=== PATIENT | male | born 1990 | race Caucasian/White ===

== ENCOUNTER 2016-08-16 13:37 | Emergency (ER) | payer OTHER ==
[~2016-08-16] VITALS: Ht 167.6 cm; Wt 83.0 kg
[2016-08-16 14:38] VITALS: BP 118/82
== END 2016-08-16 14:49 | disposition home or self-care (01) ==
LOC: EMS 13:38
DX: S71.151D Open bite, right thigh, subsequent encounter (principal); M79.89 Other specified soft tissue disorders; Y04.1XXD Assault by human bite, subsequent encounter
CPT/HCPCS: 99281